=== PATIENT | female | born 1945 | race Caucasian/White ===

== ENCOUNTER 2016-10-06 11:30 | Day surgery (SDC) | payer MEDICARE, OTHER ==
[~2016-10-06] VITALS: Ht 152.4 cm; Wt 92.9 kg
[~2016-10-06 11:30] MED LIST: AMLO2.5T78 PO; ASPI81TA3 GTB; DOCU-144 PO; GLIM1TAB2 PO; HYDROCHLOROTHIAZIDE; IBUP-734 PO; LORA2ORA2 PO; METF500T4 PO; OMEP40CA6 PO; PARO-37 PO; ROSU5TAB5 PO; SITA50TA2 PO; TRAM100T8 PO
[2016-10-06 12:49] VITALS: Ht 152.4 cm; Wt 92.9 kg
[2016-10-06] MEDS ORDERED: METOPROLOL PO (13:01)
[2016-10-06] MEDS ORDERED: HYDRALAZINE PO (13:01)
[2016-10-06] MEDS ORDERED: LIDOCAINE 2% (SDV) 5 ML INJ ONE (13:22)
[2016-10-06] MEDS ORDERED: MIDAZOLAM 1 MG/ML 2 ML INJ ONE (13:22)
[2016-10-06] MEDS ORDERED: PROPOFOL 40 ML ONE (13:22)
[2016-10-06] MEDS ORDERED: FENTAnyl 50 MCG/ML VIAL ONE (13:23)
[2016-10-06] MEDS ORDERED: hydrALAzine 20 MG INJ ONE (13:42)
[2016-10-06 14:05] VITALS: BP 142/66; PULSE 75; RESP 20
--- NOTE | 2016-10-06 17:37 | GILP ---
DATE OF PROCEDURE: 10/06/2016 NAME OF PROCEDURES: Esophagogastroduodenoscopy and biopsy. SURGEON: Jareth Wolff MD PREOPERATIVE DIAGNOSIS: Abdominal pain. POSTOPERATIVE DIAGNOSES: 1. Bile reflux gastritis with erosions. 2. Gastric polyp on the antrum and biopsies were taken for histopathology. INDICATION FOR THE PROCEDURE: Ms. Zakia Cox is a 70-year-old female patient who had upper abdomi nal pain, not responding to therapy. The patient was scheduled for endoscopic examination for [facility] evaluation. The procedure and possible complications are well explained to the patient. The patient understood and consented to the procedure. DESCRIPTION OF PROCEDURE: Under the influence of anesthesia, the gastroscope was carefully introduc ed into the esophagus and under direct vision, it was advanced to the stomach and through the pyloru s into the duodenal bulb and descending duodenum. FINDINGS: ESOPHAGUS: The mucosa was normal. STOMACH: The patient had bile reflux gastritis with erosions. The patient also had a polyp on the gastric antrum and biopsies were taken for histopathology. DUODENUM: Normal. She tolerated the procedure very well and there was no complication from the procedure. At the end of the procedure, she was awake with stable vital signs and she was discharged home to the care of [facility]. IMPRESSION: 1. Bile reflux gastritis with erosions. 2. Gastric polyp on the antrum and biopsies were taken for histopathology. PLAN: 1. Continue omeprazole. 2. Add Carafate 1 g p.o. t.i.d. a.c. 3. Await histopathology report. Dictated By: JARETH WOLFF MD GD/MARU Conf#: [id number] DID#: [id number] CC: JARETH WOLFF MD;*EndCC*
== END 2016-10-06 16:19 | disposition home or self-care (01) ==
LOC: GIL 11:30
PROVIDERS: ATTEND Internal Medicine Gastroenterology
DX: R10.10 Upper abdominal pain, unspecified (principal); K21.9 Gastro-esophageal reflux disease without esophagitis; K31.7 Polyp of stomach and duodenum; E11.9 Type 2 diabetes mellitus without complications; I10 Essential (primary) hypertension; M81.0 Age-related osteoporosis without current pathological fracture; E66.01 Morbid (severe) obesity due to excess calories; Z68.41 Body mass index [BMI] 40.0-44.9, adult
CPT/HCPCS: 43239; 82962; 88305; 88312; J0360; J2250; J3010